=== PATIENT | female | born 1960 | race Caucasian/White ===

== ENCOUNTER 2021-03-25 15:50 | Observation (INO) | payer MEDICAID ==
[~2021-03-25] VITALS: Ht 167.6 cm; Wt 67.4 kg
[2021-03-25] MEDS ORDERED: RT SPIRIVA INH18 MCG IH (17:21)
[2021-03-25] MEDS ORDERED: RIVASTIGMINE1 EAC1 TD (17:21)
[2021-03-25] MEDS ORDERED: LORAZEPAM1 M1 PO (17:21)
[2021-03-25] MEDS ORDERED: ATIVAN 2MG2 MG PO (17:21)
[2021-03-25] MEDS ORDERED: METOPROLOL SUCC25 M1 PO (17:22)
[2021-03-25] MEDS ORDERED: DESYREL 100MG100 MG PO (17:22)
[2021-03-25] MEDS ORDERED: SERTRALINE50 MG PO (17:22)
[2021-03-25] MEDS ORDERED: OLANZAPINE5 M3 PO (17:22)
[2021-03-25] MEDS ORDERED: NORVASC 10MG10 MG PO (17:22)
[2021-03-25 17:57] VITALS: BP 137/88
[2021-03-25 18:12] VITALS: BP 137/88
[2021-03-25 22:10] VITALS: BP 116/80
[2021-03-26 01:43] VITALS: BP 135/90
[2021-03-26 06:12] VITALS: BP 130/87
[2021-03-26 07:06] LABS: BASO # 0.04 (0.02-0.10); EOS # 0.18 (0.04-0.40); EOS % 2.9 % (1.0-5.0); HEMATOCRIT 41.1 % (37.0-47.0); HEMOGLOBIN 13.3 g/dL (12.5-16.0); LYMPH# 1.81 (1.50-4.00); MEAN CELL VOLUME 88 fl (78-100); MEAN CORPUSCULAR HEMOGLOBIN 28 pg (27-31); MEAN CORPUSCULAR HGB CONC 32 g/dL (33-37); MEAN PLATELET VOLUME 9.5 fl (7.4-10.4); MONO # 0.54 (0.20-0.80); NEU # 3.69 (1.40-6.50); PLATELET COUNT 298 K/mm3 (130-400); RED BLOOD COUNT 4.69 M/mm3 (4.10-5.30); RED CELL DISTRIBUTION WIDTH 12.5 % (11.5-14.5); WHITE BLOOD COUNT 6.3 K/mm3 (4.8-10.8)
[2021-03-26 07:11] LABS: POTASSIUM 4.1 mmol/L (3.5-5.1)
[2021-03-26 07:12] LABS: CALCIUM 9.7 mg/dL (8.3-10.5)
[2021-03-26 09:30] VITALS: BP 129/90
[2021-03-26 13:16] VITALS: BP 120/83
[2021-03-26 17:14] VITALS: BP 134/90
[2021-03-26 22:07] VITALS: BP 134/92
[2021-03-27 06:07] VITALS: BP 157/98
[2021-03-27 10:20] VITALS: BP 149/95
== END 2021-03-27 12:30 | disposition home or self-care (01) ==
LOC: MED/SURG 15:50
PROVIDERS: ADMIT Physician Assistant
DX: R41.82 Altered mental status, unspecified (principal); N39.0 Urinary tract infection, site not specified; R53.81 Other malaise; I10 Essential (primary) hypertension; J44.9 Chronic obstructive pulmonary disease, unspecified; R29.6 Repeated falls; F39 Unspecified mood [affective] disorder; F17.210 Nicotine dependence, cigarettes, uncomplicated; Z79.899 Other long term (current) drug therapy; Z86.73 Personal history of transient ischemic attack (TIA), and cerebral infarction without residual deficits
CPT/HCPCS: G0378; J1650; J7030